=== PATIENT | male | born 1975 | race Caucasian/White ===

== ENCOUNTER 2022-01-02 17:55 | Emergency (ER) | payer OTHER ==
[~2022-01-02 17:55] MED LIST: KEFLEX CAP 500500 MG PO; Voltaren Gel 1 % TOP
[2022-01-02 18:38] LABS: HEMOGLOBIN 13.3 gm/dl (14.0-17.5); RED BLOOD COUNT 4.69 M/UL (4.20-5.50); WHITE BLOOD COUNT 5.8 K/UL (4.5-11.0)
[2022-01-02 18:57] LABS: BUN/CREATININE RATIO 23 (0-10)
[2022-01-02] MEDS ORDERED: LASIX40 MG PO (22:36)
[2022-01-02] MEDS ORDERED: K-TAB ER20 MEQ PO (22:36)
[2022-01-02] MEDS ORDERED: CEPHALEXIN500 M1 PO (22:36)
== END 2022-01-02 22:55 | disposition home or self-care (01) ==
LOC: ER1 17:55
PROVIDERS: Physician Assistant Medical
DX: R07.89 Other chest pain (principal); R60.0 Localized edema; L03.116 Cellulitis of left lower limb; L03.115 Cellulitis of right lower limb; I25.2 Old myocardial infarction; E78.5 Hyperlipidemia, unspecified; F17.200 Nicotine dependence, unspecified, uncomplicated; I10 Essential (primary) hypertension; Z88.0 Allergy status to penicillin; Z88.5 Allergy status to narcotic agent
CPT/HCPCS: 71045; 80053; 82550; 82553; 83690; 83880; 84484; 85025; 93005; 99285; Q9967